=== PATIENT | male | born 1950 | race Caucasian/White ===

== ENCOUNTER 2021-09-26 10:34 | Outpatient (CLI) | payer MEDICARE, BC ==
[2021-09-26 13:22] LABS: #Eosinphils 0.1 10x3/uL (0.0-0.5); #Monocytes 0.8 10x3/uL (0.0-1.1); #Neutrophils 8.9 10x3/uL (1.5-8.4); %Basophils 0.3 % (0.0-2.0); %Eosinophils 0.8 % (0.0-6.0); %Monocytes 7.3 % (0.0-10.0); %Neutrophils 82.3 % (40.0-75.0); Hemoglobin 14.7 g/dL (13.5-17.5); Mean Corpuscular HGB CONC 32.7 g/dL (32.0-36.0); Mean Corpuscular Hemoglobin 29.2 pg (27.0-33.0); Mean Corpuscular Volume 89.3 fl (81.2-95.1); Mean Platelet Volume 11.7 fl (7.4-10.4); Platelet Count 181 10x3/uL (150-450); Red Blood Cell (RBC) Count 5.04 10x6/uL (4.32-5.72); White Blood Cell (WBC) Count 10.8 10x3/uL (3.5-10.5)
[2021-09-26 13:31] LABS: Anion Gap 16 mmol/L (10-20); BUN (Urea Nitrogen) 17 mg/dL (8.4-25.7); Calc. Creatinine Clearance 0 mL/min (70-130); Calcium 9.5 mg/dL (7.8-10.44); Carbon Dioxide 27 mmol/L (23-31); Chloride 98 mmol/L (98-107); Glucose 112 mg/dL (80-115); Potassium 4.5 mmol/L (3.5-5.1); Sodium 136 mmol/L (136-145)
== END 2021-09-26 10:35 | disposition home or self-care (01) ==
LOC: LABBT 10:34
PROVIDERS: ATTEND Surgery
DX: Z01.812 Encounter for preprocedural laboratory examination (principal); K40.90 Unilateral inguinal hernia, without obstruction or gangrene, not specified as recurrent; Z20.822 Contact with and (suspected) exposure to COVID-19
CPT/HCPCS: 80048; 85025; U0003; U0005

== ENCOUNTER 2021-09-29 08:22 | Day surgery (SDC) | payer MEDICARE, BC ==
[2021-09-26 13:02] VITALS: BMI 26.6
[2021-09-29] MEDS ORDERED: Lidocaine 1% w/Epinephrine 1:100K 20 ML VIAL ONE (08:55)
[2021-09-29] MEDS ORDERED: Bupivacaine 0.25% HCL 30 ML VIAL ONE (08:56)
[2021-09-29] MEDS ORDERED: SUGAMMADEX SODIUM 200 MG/2 ML VIAL ONE (09:41)
[2021-09-29] MEDS ORDERED: fentaNYL Citrate/PF 100 MCG/2 ML SYRINGE ONE (09:41)
[2021-09-29] MEDS ORDERED: Midazolam HCl 2 mg/2 ml Vial ONE (09:50)
[2021-09-29] MEDS ORDERED: cefOXitin 2 GM VIAL ONE (09:56)
[2021-09-29] MEDS ORDERED: Rocuronium Bromide 10 MG/ML (10ML VIAL) ONE (10:10)
[2021-09-29] MEDS ORDERED: Lidocaine 1% PF 5 ML VIAL ONE (10:10)
[2021-09-29] MEDS ORDERED: Ondansetron PF 4 MG/2 ML Vial ONE (10:10)
[2021-09-29] MEDS ORDERED: Glycopyrrolate 0.2 MG/ML 5 ML SYRINGE ONE (10:10)
[2021-09-29] MEDS ORDERED: PROPOFOL 200 MG/20 ML VIAL ONE (10:10)
[2021-09-29] MEDS ORDERED: Fentanyl 100 MCG/2 ML VIAL ONE ×3 (11:42→12:24)
== END 2021-09-29 14:23 | disposition home or self-care (01) ==
LOC: SDC 08:22
PROVIDERS: ATTEND Surgery
PROC: 0YU54JZ Supplement Right Inguinal Region with Synthetic Substitute, Percutaneous Endoscopic Approach (ICD-10-PCS; principal; 2021-09-29)
PROC: 8E0W4CZ Robotic Assisted Procedure of Trunk Region, Percutaneous Endoscopic Approach (ICD-10-PCS; 2021-09-29)
DX: K40.90 Unilateral inguinal hernia, without obstruction or gangrene, not specified as recurrent (principal); I25.10 Atherosclerotic heart disease of native coronary artery without angina pectoris; E78.00 Pure hypercholesterolemia, unspecified; M19.90 Unspecified osteoarthritis, unspecified site; J44.9 Chronic obstructive pulmonary disease, unspecified; I10 Essential (primary) hypertension; Z79.82 Long term (current) use of aspirin; Z79.899 Other long term (current) drug therapy; Z91.041 Radiographic dye allergy status; Z90.5 Acquired absence of kidney
CPT/HCPCS: 49650; C1781; C1889; J0694; J2250; J2405; J2704; J3010; S0020

== ENCOUNTER 2023-09-28 15:34 | Outpatient (CLI) | payer MEDICARE, BC | END 2023-09-28 15:35 | disposition home or self-care (01) | LOC: BICCT 15:34 | PROVIDERS: ATTEND Emergency Medicine | DX: M50.10 Cervical disc disorder with radiculopathy, unspecified cervical region (principal); G91.9 Hydrocephalus, unspecified; M48.02 Spinal stenosis, cervical region; I51.7 Cardiomegaly | CPT/HCPCS: 70450; 72125 ==

== ENCOUNTER 2023-10-08 13:26 | Outpatient (CLI) | payer MEDICARE, BC ==
[2023-10-08 14:15] LABS: #Basophils 0.06 10x3/uL (0.0-0.2); #Eosinphils 0.12 10x3/uL (0.0-0.5); #Monocytes 0.58 10x3/uL (0.0-1.1); #Neutrophils 6.68 10x3/uL (1.5-8.4); %Basophils 0.7 % (0.0-2.0); %Eosinophils 1.3 % (0.0-6.0); %Lymphocytes 17.2 % (18.0-47.0); %Monocytes 6.3 % (0.0-10.0); %Neutrophils 72.5 % (40.0-75.0); Hematocrit 45.3 % (38.8-50.0); Hemoglobin 15.5 g/dL (13.5-17.5); Mean Corpuscular HGB CONC 34.2 g/dL (32.0-36.0); Mean Corpuscular Hemoglobin 30.3 pg (27.0-33.0); Mean Corpuscular Volume 88.6 fL (81.2-95.1); Mean Platelet Volume 11.2 fL (7.4-10.4); Platelet Count 232 10x3/uL (150-450); RBC Distribution Width 13.3 % (11.5-14.5); Red Blood Cell (RBC) Count 5.11 10x6/uL (4.32-5.72); White Blood Cell (WBC) Count 9.2 10x3/uL (3.5-10.5)
[2023-10-08 14:19] LABS: Anion Gap 13 mmol/L (10-20); BUN (Urea Nitrogen) 15 mg/dL (8.4-25.7); Calc. Creatinine Clearance 0 mL/min (70-130); Calcium 9.2 mg/dL (7.8-10.44); Carbon Dioxide 28 mmol/L (23-31); Chloride 101 mmol/L (98-107); Estimated GFR 68; Glucose 173 mg/dL (83-110); Potassium 4.1 mmol/L (3.5-5.1); Sodium 138 mmol/L (136-145)
== END 2023-10-08 13:27 | disposition home or self-care (01) ==
LOC: LABBT 13:26
PROVIDERS: ATTEND Surgery
DX: Z01.812 Encounter for preprocedural laboratory examination (principal); K40.90 Unilateral inguinal hernia, without obstruction or gangrene, not specified as recurrent
CPT/HCPCS: 80048; 85025

== ENCOUNTER 2023-10-10 11:00 | Day surgery (SDC) | payer MEDICARE, BC ==
[2023-10-08 13:53] VITALS: BMI 28.0
== END 2023-10-10 16:15 | disposition home or self-care (01) ==
LOC: SDC 11:00
PROVIDERS: ATTEND Surgery
PROC: 0YU50JZ Supplement Right Inguinal Region with Synthetic Substitute, Open Approach (ICD-10-PCS; principal; 2023-10-10)
DX: K40.91 Unilateral inguinal hernia, without obstruction or gangrene, recurrent (principal); I25.10 Atherosclerotic heart disease of native coronary artery without angina pectoris; E78.00 Pure hypercholesterolemia, unspecified; M19.90 Unspecified osteoarthritis, unspecified site; K58.9 Irritable bowel syndrome, unspecified; J44.9 Chronic obstructive pulmonary disease, unspecified; I10 Essential (primary) hypertension; C61 Malignant neoplasm of prostate; Z90.5 Acquired absence of kidney; Z98.890 Other specified postprocedural states; Z91.041 Radiographic dye allergy status; Z79.82 Long term (current) use of aspirin; Z79.899 Other long term (current) drug therapy
CPT/HCPCS: 49520; A4306; C1781

== ENCOUNTER 2024-12-11 13:23 | Outpatient (CLI) | payer MEDICARE, BC | END 2024-12-11 13:24 | disposition home or self-care (01) | LOC: SCSMRI 13:23 | PROVIDERS: ATTEND Family Medicine Sports Medicine | DX: M47.27 Other spondylosis with radiculopathy, lumbosacral region (principal); M67.952 Unspecified disorder of synovium and tendon, left thigh; M48.07 Spinal stenosis, lumbosacral region; M47.26 Other spondylosis with radiculopathy, lumbar region | CPT/HCPCS: 72148 ==